=== PATIENT | female | born 1985 | race Two or more races ===

== ENCOUNTER 2021-04-17 18:32 | Emergency (ER) | payer OTHER ==
[~2021-04-17] VITALS: Ht 165.1 cm; Wt 90.7 kg
[2021-04-18] MEDS ORDERED: KETO10TA2 PO (01:04)
[2021-04-18] MEDS ORDERED: ZITHROMAX500 MG PO (01:04)
== END 2021-04-18 01:14 ==
LOC: ER 18:32
DX: J06.9 Acute upper respiratory infection, unspecified (principal); B96.0 Mycoplasma pneumoniae [M. pneumoniae] as the cause of diseases classified elsewhere; R50.9 Fever, unspecified; Z03.818 Encounter for observation for suspected exposure to other biological agents ruled out

== ENCOUNTER 2021-07-21 14:01 | Emergency (ER) | payer OTHER ==
[~2021-07-21] VITALS: Ht 165.1 cm; Wt 89.4 kg
[~2021-07-21 14:01] MED LIST: KETO10TA2 PO; ZITHROMAX500 MG PO
[2021-07-21] MEDS ORDERED: BACTRIM 400-801 EACH (14:20)
== END 2021-07-21 18:40 | disposition home or self-care (01) ==
LOC: ER 14:01
DX: R30.0 Dysuria (principal); N30.90 Cystitis, unspecified without hematuria; M54.89 Other dorsalgia

== ENCOUNTER 2023-01-26 20:23 | Emergency (ER) | payer OTHER ==
[~2023-01-26] VITALS: Ht 165.1 cm; Wt 89.8 kg
[~2023-01-26 20:23] MED LIST changes: +BACTRIM 400-801 EACH
== END 2023-01-26 21:43 | disposition home or self-care (01) ==
LOC: ER 20:23
DX: J06.9 Acute upper respiratory infection, unspecified (principal)

== ENCOUNTER 2023-02-25 21:50 | Emergency (ER) | payer OTHER ==
[~2023-02-25] VITALS: Ht 162.6 cm; Wt 104.3 kg
[2023-02-26] MEDS ORDERED: DICLOFENAC POTA50 MG PO (03:13)
== END 2023-02-26 03:28 | disposition home or self-care (01) ==
LOC: ER 21:50
DX: S93.492A Sprain of other ligament of left ankle, initial encounter (principal); W19.XXXA Unspecified fall, initial encounter; Y93.89 Activity, other specified; Y92.89 Other specified places as the place of occurrence of the external cause; Y99.9 Unspecified external cause status; Z91.013 Allergy to seafood

== ENCOUNTER 2025-06-01 14:53 | Emergency (ER) | payer OTHER ==
[~2025-06-01] VITALS: Ht 165.1 cm; Wt 96.6 kg
[~2025-06-01 14:53] MED LIST changes: +DICLOFENAC POTA50 MG PO
[2025-06-01 15:22] VITALS: O2SAT 98
[2025-06-01] MEDS ORDERED: ENALAPRILAT DIHYDRATE 1.25 MG/ML VIAL IV STA (15:51)
[2025-06-01] MEDS ORDERED: SODIUM CHLORIDE 0.45 % 1,000 ML IV STA (15:51)
[2025-06-01] MEDS ORDERED: ENALAPRILAT DIHYDRATE 1.25 MG/ML VIAL IV ONE (16:46)
[2025-06-01 16:49] LABS: BASO % 0.2 % (0.1-1.2); EOS # 0.09 (0.04-0.54); EOS % 0.8 % (0.7-7.0); LYMPH # 2.74 (1.18-3.74); LYMPH % 24.9 % (19.3-53.1); MEAN PLATELET VOLUME 9.60 fl (9.4-12.4); MONO # 0.76 (0.24-0.82); MONO % 6.9 % (4.7-12.5); NEUT # 7.38 (1.56-6.13); NEUT % 66.9 % (34.0-71.1); RED CELL DISTRIBUTION WIDTH 14.9 % (11.6-14.4)
[2025-06-01] MEDS ORDERED: ASPIRIN 325 MG TABLET PO STA (16:53)
[2025-06-01 17:23] LABS: ALT/SGPT 72.0 U/L (12-78); AST/SGOT 41.0 U/L (15-37); BILIRUBIN TOTAL 0.28 mg/dL (0.3-1.2); BUN CREA RATIO 17.0 (7.0-25.0); CREATININE SERUM 0.81 mg/dL (0.55-1.02); GFR 78.72; GLOBULINA 4.7 G/DL (2.4-3.5); GLUCOSE FASTING 110.0 mg/dL (65-100); OSMOLALITY SERUM 286.0 MOSM/KG (275-295)
[2025-06-01 17:58] LABS: URINE APPEARANCE Clear; URINE BILIRRUBIN Negative (NEGATIVE); URINE BLOOD NHT; URINE COLOR Yellow; URINE GLUCOSE Negative (NEGATIVE); URINE KETONE Trace (NEGATIVE); URINE LEUKOCYTE Negative; URINE NITRATE Negative; URINE PROTEIN 30 (NEGATIVE); URINE UROBILINOGEN 1.0 E.U./dl
[2025-06-01 18:02] LABS: URINE BACTERIA 128.4 uL (0.0-1933); URINE EPITHELIAL CELLS 17.8 uL (0.0-38.8); URINE RBC 14.6 uL (0.0-20.8); URINE WBC 20.6 uL (0.0-23.2)
[2025-06-01 18:43] LABS: URINE CAST 0.43 uL (0.0-1.40)
[2025-06-01 18:50] VITALS: BP 120/80
== END 2025-06-01 19:19 | disposition home or self-care (01) ==
LOC: ER 14:53
PROVIDERS: General Practice
DX: R00.2 Palpitations (principal); R42 Dizziness and giddiness; D64.89 Other specified anemias; Z91.013 Allergy to seafood